=== PATIENT | female | born 1995 | race African-American/Black ===

== ENCOUNTER 2017-08-01 18:56 | Emergency (ER) | payer OTHER, SELFPAY ==
[2017-08-01] MEDS ORDERED: diphenhydrAMINE 25 MG CAP ONE (20:08)
[2017-08-01] MEDS ORDERED: predniSONE 20 MG TAB ONE (20:08)
== END 2017-08-01 20:15 | disposition home or self-care (01) ==
LOC: NAV ERS 18:56
DX: J06.9 Acute upper respiratory infection, unspecified (principal)
CPT/HCPCS: 99283; J7506

== ENCOUNTER 2017-10-14 13:36 | Emergency (ER) | payer OTHER ==
[2017-10-14] MEDS ORDERED: Acetaminophen 325 MG TAB ONE (14:07)
== END 2017-10-14 14:40 | disposition home or self-care (01) ==
LOC: NAV ERS 13:36
DX: O98.519 Other viral diseases complicating pregnancy, unspecified trimester (principal); B34.9 Viral infection, unspecified; Z3A.00 Weeks of gestation of pregnancy not specified
CPT/HCPCS: 99283

== ENCOUNTER 2018-06-20 23:36 | Emergency (ER) | payer OTHER ==
[2018-06-21] MEDS ORDERED: Acetaminophen 500 MG TAB ONE (00:05)
== END 2018-06-21 00:05 | disposition home or self-care (01) ==
LOC: NAV ERS 23:36
DX: R10.11 Right upper quadrant pain (principal)
CPT/HCPCS: 99283

== ENCOUNTER 2018-11-17 18:11 | Emergency (ER) | payer OTHER | END 2018-11-17 18:43 | disposition home or self-care (01) | LOC: NAV ERS 18:11 | DX: J06.9 Acute upper respiratory infection, unspecified (principal); B30.9 Viral conjunctivitis, unspecified | CPT/HCPCS: 99282 ==

== ENCOUNTER 2019-11-20 12:30 | Emergency (ER) | payer OTHER | END 2019-11-20 13:32 | disposition home or self-care (01) | LOC: NAV ERS 12:30 | DX: J02.8 Acute pharyngitis due to other specified organisms (principal); B97.89 Other viral agents as the cause of diseases classified elsewhere | CPT/HCPCS: 99283 ==

== ENCOUNTER 2020-05-06 10:44 | Emergency (ER) | payer OTHER ==
[2020-05-06] MEDS ORDERED: Ibuprofen 800 MG TAB ONE (11:07)
[2020-05-07 12:16] LABS: SARS-CoV-2 MS2 Positive; SARS-CoV-2 N Gene Positive; SARS-CoV-2 S Gene Positive; SARS-CoV-2 by NAA DETECTED (NotDetected); SARS-CoV-2 orf1ab Positive
== END 2020-05-06 11:23 | disposition home or self-care (01) ==
LOC: NAV ERS 10:44
DX: U07.1 COVID-19 (principal)
CPT/HCPCS: 87635; 99283; U0003

== ENCOUNTER 2021-08-18 05:28 | Emergency (ER) | payer BC ==
[2021-08-18 05:56] LABS: Bilirubin Negative (Negative); Blood, Urine Small (Negative); Clarity Clear (Clear); Glucose, Urine (Dipstick) Negative (Negative); Ketone, Urine Negative (Negative); Leukocyte Trace (Negative); Nitrite Negative (Negative); Protein, Urine (Dipstick) Negative (Neg-Trace); Specific Gravity, Urine 1.025 (1.005-1.030)
[2021-08-18 06:03] LABS: Bacteria/HPF Rare-Few HPF (None Seen); Pregnancy Test - Urine (BHCG) Negative (Negative); Pregu Control Background? CLEAR/WHITE (CLR/WHITE); Pregu Control Bar Appear? YES (CONTROL BAR); Specific Gravity 1.025 (1.002-1.036); Squamous Epithelial 0-3 HPF (0-3); WBC/HPF 0-3 HPF (0-3)
[2021-08-18] MEDS ORDERED: Phenazopyridine HCl 97.5 MG TABLET ONE (06:27)
== END 2021-08-18 06:35 | disposition home or self-care (01) ==
LOC: NAV ERS 05:28
DX: N39.0 Urinary tract infection, site not specified (principal)
CPT/HCPCS: 81003; 81015; 81025; 87086; 99283

== ENCOUNTER 2021-09-08 23:39 | Emergency (ER) | payer BC | END 2021-09-09 00:57 | disposition home or self-care (01) | LOC: NAV ERS 23:39 | DX: J02.8 Acute pharyngitis due to other specified organisms (principal); B97.89 Other viral agents as the cause of diseases classified elsewhere | CPT/HCPCS: 87081; 87430; 99283 ==

== ENCOUNTER 2023-08-26 05:29 | Emergency (ER) | payer BC ==
[2023-08-26 06:08] LABS: Bilirubin Negative (Negative); Blood, Urine Large (Negative); Clarity Clear (Clear); Glucose, Urine (Dipstick) Negative (Negative); Ketone, Urine Negative (Negative); Leukocyte Negative (Negative); Nitrite Negative (Negative); Protein, Urine (Dipstick) Negative (Neg-Trace); Urobilinogen 0.2 mg/dL (Less than 2)
[2023-08-26 06:18] LABS: Bacteria/HPF None Seen HPF (None Seen); Squamous Epithelial 0-3 HPF (0-3); WBC/HPF 0-3 HPF (0-3)
[2023-08-26 06:22] LABS: Pregnancy Test - Urine (BHCG) Negative (Negative); Pregu Control Background? CLEAR/WHITE (CLR/WHITE); Pregu Control Bar Appear? YES (CONTROL BAR)
[2023-08-26] MEDS ORDERED: Sodium Chloride 0.9% 1,000 ML ONE (06:40)
[2023-08-26] MEDS ORDERED: Ondansetron PF 4 MG/2 ML Vial ONE (06:40)
[2023-08-26] MEDS ORDERED: Morphine 4 MG/ML VIAL ONE (06:40)
[2023-08-26 06:48] LABS: #Basophils 0.1 thou/uL (0.0-0.2); #Eosinphils 0.1 thou/uL (0.0-0.7); #Lymphocytes 2.5 thou/uL (1.20-3.40); #Monocytes 0.5 thou/uL (0.11-0.59); #Neutrophils 2.6 thou/uL (1.40-6.50); %Basophils 1.9 % (0.0-1.0); %Eosinophils 2.1 % (0.0-10.0); %Lymphocytes 42.5 % (21.0-51.0); %Neutrophils 44.6 % (42.0-75.0); Hematocrit 38.4 % (36.0-47.0); Hemoglobin 12.8 g/dL (12.0-16.0); Mean Corpuscular HGB CONC 33.4 g/dL (32.0-36.0); Mean Corpuscular Hemoglobin 29.4 pg (27.0-31.0); Mean Corpuscular Volume 87.9 fl (78.0-98.0); Mean Platelet Volume 7.7 fL (7.4-10.4); Platelet Count 305 10x3/uL (130-400); RBC Distribution Width 11.9 % (11.5-14.5); Red Blood Cell (RBC) Count 4.37 mill/uL (4.20-5.40); White Blood Cell (WBC) Count 5.9 10x3/uL (4.8-10.8)
[2023-08-26 07:01] LABS: Anion Gap 14 mmol/L (10-20); BUN (Urea Nitrogen) 8 mg/dL (7.0-18.7); Calc. Creatinine Clearance 0 mL/min (70-130); Calcium 9.4 mg/dL (7.8-10.44); Carbon Dioxide 25 mmol/L (22-29); Chloride 105 mmol/L (98-107); Estimated GFR 107; Glucose 97 mg/dL (70-105); Potassium 3.6 mmol/L (3.5-5.1); Sodium 140 mmol/L (136-145)
[2023-08-26] MEDS ORDERED: Ketorolac Tromethamine 30 MG/ML VIAL ONE (07:50)
== END 2023-08-26 08:28 | disposition home or self-care (01) ==
LOC: NAV ERS 05:29
DX: N13.2 Hydronephrosis with renal and ureteral calculous obstruction (principal)
CPT/HCPCS: 74176; 80048; 81001; 81025; 85025; 96374; 96375; J1885; J2270; J2405; J7050